=== PATIENT | female | born 1940 | race Caucasian/White ===

== ENCOUNTER 2018-09-24 17:48 | Emergency (ER) | payer MEDICARE, OTHER ==
[2018-09-24 18:05] VITALS: TEMP 98.2
[2018-09-24 18:27] LABS: BASOPHILS % (AUTO) 1 % (0-3); EOSINOPHILS % (AUTO) 1 % (0-9); HEMATOCRIT 46 % (35-47); HEMOGLOBIN 14.5 gm/dl (12.0-15.5); LYMPHOCYTES % (AUTO) 14.8 % (10-50); MEAN CORPUSCULAR HEMOGLOBIN 29.5 pg (27.0-32.0); MEAN CORPUSCULAR HGB CONC 31.4 gm/dl (32.0-36.0); MEAN CORPUSCULAR VOLUME 94 fL (81-99); MONOCYTES % (AUTO) 7.2 % (0-12); NEUTROPHILS % (AUTO) 76.3 % (37-80)
[2018-09-24 18:34] LABS: CALCIUM 9.3 mg/dl (8.5-10.1); CARBON DIOXIDE 24.8 mEq/L (21-32); CREATININE 1.43 mg/dl (0.60-1.00); POTASSIUM 3.6 mMol/L (3.5-5.1)
[2018-09-24 18:36] LABS: INR 1.6 (0.86-1.12)
[2018-09-24] MEDS ORDERED: GABAPENTIN 100 MG CAP PO ONE (19:53)
[2018-09-24] MEDS ORDERED: GABAPENTIN 100 MG CAP ONE (19:57)
[2018-09-24 20:17] VITALS: BP 152/122; PULSE 90; RESP 13; O2SAT 98
== END 2018-09-24 20:12 | disposition home or self-care (01) | DRG 914 ==
LOC: ED 17:48
DX: S09.90XA Unspecified injury of head, initial encounter (principal); W10.9XXA Fall (on) (from) unspecified stairs and steps, initial encounter; R40.2362 Coma scale, best motor response, obeys commands, at arrival to emergency department; R40.2142 Coma scale, eyes open, spontaneous, at arrival to emergency department; R40.2252 Coma scale, best verbal response, oriented, at arrival to emergency department; I10 Essential (primary) hypertension; Z79.01 Long term (current) use of anticoagulants; I48.91 Unspecified atrial fibrillation
CPT/HCPCS: 36415; 70450; 72192; 80048; 85025; 85610; 99284; 99285; G0390; A9270-GY